=== PATIENT | female | born 1995 | race Caucasian/White ===

== ENCOUNTER 2018-03-09 06:08 | Inpatient (IN) | payer OTHER ==
[~2018-03-09] VITALS: Ht 154.9 cm; Wt 121.9 kg
[2018-03-09 07:31] LABS: BASOPHIL (%) 0.5 % (0-1); BASOPHIL COUNT 0.1 K/uL (0-0.1); EOSINOPHIL (%) 1.1 % (0-5); EOSINOPHIL COUNT 0.1 K/uL (0-0.3); HEMATOCRIT 40.1 % (36.0-46.0); HEMOGLOBIN 12.8 G/DL (11.9-15.5); IMMATURE GRANULOCYTE (%) 0.8 % (0.0-0.7); LYMPHOCYTE (%) 20.7 % (15-42); LYMPHOCYTE COUNT 2.1 K/uL (1.0-2.8); MCH 26.3 PG (29.0-34.0); MCHC 31.9 G/DL (30.0-36.0); MCV 82.3 FL (83-99); MONOCYTE (%) 9.1 % (3-12); MONOCYTE COUNT 0.9 K/uL (0-0.8); NEUTROPHIL (%) 67.8 % (45-76); NEUTROPHIL COUNT 6.8 K/uL (1.8-6.4); PLATELET COUNT 316 K/uL (156-360); RBC DIS.WIDTH-CV 13.6 % (11.8-14.6); RBC DIS.WIDTH-SD 40.8 % (39-53); RED BLOOD COUNT 4.87 M/uL (3.80-5.20)
[2018-03-09 08:03] LABS: TROP-I INTERPRETATION POSITIVE; TROPONIN-I 3.01 ng/mL (0.0-0.30)
[2018-03-09 08:05] LABS: CHLORIDE 105 MEQ/L (99-109); CREATININE 0.7 MG/DL (0.6-1.3); GFR ESTIMATE (CALCULATED) > 59 mL/min/; GLUCOSE 119 mg/dL (70-99); POTASSIUM 3.9 MEQ/L (3.7-5.4); SODIUM 139 MEQ/L (136-147); UREA NITROGEN (BUN) 13 mg/dL (9-23)
[2018-03-09 08:35] LABS: INTER. NORMALIZED RATIO 1.1
[2018-03-09 08:37] LABS: PTT 31.6 SEC (25-37)
[2018-03-09 10:05] LABS: TROP-I INTERPRETATION POSITIVE
[2018-03-09 10:08] LABS: TROPONIN-I 6.17 ng/mL (0.0-0.30)
[2018-03-09] MEDS ORDERED: PROTONIX20 MG PO (10:29)
[2018-03-09] MEDS ORDERED: SYNTHROID112 MCG PO (10:29)
[2018-03-09] MEDS ORDERED: OMEGA 3 500 SO1 EACH PO (10:30)
[2018-03-09] MEDS ORDERED: MELATONIN1 MG PO (10:30)
[2018-03-09] MEDS ORDERED: DAILY VITE1 EAC1 PO (10:31)
[2018-03-09] MEDS ORDERED: KELNOR 1-351 EACH PO (10:52)
[2018-03-09 13:21] LABS: HDL CHOLESTEROL 42 MG/DL (Desirable>=50); LDL CHOLESTEROL 129 mg/dL (Desirable<100); NON-HDL CHOLESTEROL 158 mg/dL (Desirable<160); TOTAL CHOLESTEROL 200 mg/dL (Desirable<200); TRIGLYCERIDES 143 MG/DL (Normal: <150)
[2018-03-09 14:55] VITALS: BP 151/83
[2018-03-09 18:53] LABS: TROP-I INTERPRETATION POSITIVE; TROPONIN-I 9.91 ng/mL (0.0-0.30)
[2018-03-09 19:08] LABS: INTER. NORMALIZED RATIO 1.1
[2018-03-09 19:16] LABS: PTT 21.1 SEC (25-37)
[2018-03-09 21:00] VITALS: BP 129/74
[2018-03-10 01:17] VITALS: BP 156/90
[2018-03-10 01:25] LABS: TROP-I INTERPRETATION POSITIVE
[2018-03-10 04:48] VITALS: BP 137/87
[2018-03-10 05:24] LABS: BENZODIAZEPINES, URINE SCREEN Negative (200 ng/mL)
[2018-03-10 09:00] VITALS: BP 141/90
[2018-03-10 10:04] LABS: INTER. NORMALIZED RATIO 1.1
[2018-03-10 10:07] LABS: PTT 42.4 SEC (25-37)
[2018-03-10 10:29] LABS: ALKALINE PHOSPHATASE 86 IU/L (3-129); ALT (GPT) 22 IU/L (3-49); AST (GOT) 38 IU/L (2-34); CHLORIDE 102 MEQ/L (99-109); CREATININE 0.6 MG/DL (0.6-1.3); GFR ESTIMATE (CALCULATED) > 59 mL/min/; GLUCOSE 120 mg/dL (70-99); POTASSIUM 4.4 MEQ/L (3.7-5.4); SODIUM 138 MEQ/L (136-147); TOTAL BILIRUBIN 0.3 MG/DL (0.0-1.0); TOTAL PROTEIN 7.3 G/DL (6.4-8.3); UREA NITROGEN (BUN) 8 mg/dL (9-23)
[2018-03-10 10:57] LABS: HEMOGLOBIN A1c (GLYCOHEMOGLOB) 5.7 % (Below 5.7)
[2018-03-10] MEDS ORDERED: ASPIR-LOW81 MG PO (11:09)
[2018-03-10] MEDS ORDERED: NITROSTAT0.4 MG SL (11:09)
[2018-03-10] MEDS ORDERED: DILTIAZEM 24HR120 MG PO (11:09)
[2018-03-10] MEDS ORDERED: CLOPIDOGREL75 MG PO (11:09)
[2018-03-10] MEDS ORDERED: PRAVACHOL40 MG PO (11:12)
[2018-03-10 11:57] VITALS: BP 154/90
== END 2018-03-10 12:15 | disposition home or self-care (01) | DRG 282 ==
LOC: EME 06:08 → 4EAST 10:13 → EDOF 10:13 → ENRESERV 10:14 → 4EAST 14:22 → UNDODEPER 14:25 → 4EAST 03-10 12:15
PROVIDERS: Emergency Medicine; Internal Medicine; Internal Medicine Cardiovascular Disease
DX: I21.4 Non-ST elevation (NSTEMI) myocardial infarction (principal); E78.5 Hyperlipidemia, unspecified; E03.9 Hypothyroidism, unspecified; E66.9 Obesity, unspecified; I10 Essential (primary) hypertension; F32.9 Major depressive disorder, single episode, unspecified; F14.90 Cocaine use, unspecified, uncomplicated; F41.9 Anxiety disorder, unspecified; E66.01 Morbid (severe) obesity due to excess calories
CPT/HCPCS: 71045; 75574; 80048; 80053; 80061; 80306 90; 83036; 83880; 84484; 85025; 85379; 85610; 85730; 93005; 93306; 99281; 99285; J1644